=== PATIENT | male | born 1955 | race Caucasian/White ===

== ENCOUNTER 2018-12-29 16:55 | Emergency (ER) | payer BC ==
[~2018-12-29] VITALS: Ht 182.9 cm; Wt 90.7 kg
[2018-12-29 16:55] VITALS: BP_SYST 140
--- NOTE | 2018-12-29 16:55 | NUR ---
BROUGHT BACK TO BED #1 AND TRIAGED. REPORT GIVEN TO JOSE
--- NOTE | 2018-12-29 17:04 | NUR ---
DIVINA MUNOZ AT BEDSIDE FOR EVALUATION
[2018-12-29] MEDS ORDERED: KETOROLAC TROMETHAMINE 60 MG/2 ML VIAL IM ONE (17:15)
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
--- NOTE | 2018-12-29 19:06 | NUR ---
Patient given written and verbal discharge instructions and verbalizes understanding. ER MD discussed with patient the results and treatment provided. Patient in stable condition. ID arm band removed. Rx of tylenol given. Patient educated on pain management and to follow up with PMD. Pain Scale 0/10. Opportunity for questions provided and answered. Medication side effect fact sheet provided.
[2018-12-29 19:07] VITALS: BP_SYST 140
== END 2018-12-29 19:06 | disposition home or self-care (01) ==
LOC: SED 16:55
DX: S16.1XXA Strain of muscle, fascia and tendon at neck level, initial encounter (principal); I10 Essential (primary) hypertension; E11.9 Type 2 diabetes mellitus without complications; V43.52XA Car driver injured in collision with other type car in traffic accident, initial encounter; Y93.89 Activity, other specified; Y92.89 Other specified places as the place of occurrence of the external cause; Y99.8 Other external cause status
CPT/HCPCS: 72040; 96372; 99283; J1885